=== PATIENT | female | born 1970 | race Caucasian/White ===

== ENCOUNTER 2018-02-11 14:38 | Emergency (ER) | payer MEDICAID ==
[~2018-02-11] VITALS: Ht 170.2 cm; Wt 69.9 kg
[2018-02-11 15:13] VITALS: BP 117/69; Ht 170.2 cm; Wt 69.9 kg
== END 2018-02-11 16:52 | disposition home or self-care (01) ==
LOC: ED 14:38
DX: N76.0 Acute vaginitis (principal); F31.9 Bipolar disorder, unspecified